=== PATIENT | male | born 1995 | race Caucasian/White ===

== ENCOUNTER → 2017-03-14 | Outpatient (CLI) | payer BC ==
[~2017-03-14] MED LIST: PENI500T2 PO
--- NOTE | 2017-03-14 16:32 | DIAGNOSTIC IMAGING REPORT ---
PELVIS/RIGHT HIP MRI HISTORY: R HIP PAIN TECHNIQUE: Multiplanar multisequence MRI of the pelvis and right hip were performed without the use of intravenous contrast. COMPARISON STUDY: None. FINDINGS: No fracture or dislocation within the pelvis or hips. Normal marrow signal intensity seen throughout the visualized osseous structures. No hip effusions. Cartilage spaces are maintained for age. Pelvic soft tissues are intact. The right hip labrum appears grossly intact. IMPRESSION: 1. No fracture or dislocation within the pelvis or hips. 2. No significant soft tissue abnormality within the bilateral hips. Electronically signed by: Les Kelly M.D. 03/14/2017 4:31 PM Dictated Date/Time: 03/14/2017 4:21 PM
== END | disposition home or self-care (01) ==
LOC: C.MRI 15:14
PROVIDERS: ATTEND Family Medicine
DX: M25.551 Pain in right hip (principal)